=== PATIENT | female | born 1975 | race Caucasian/White ===

== ENCOUNTER 2021-02-04 06:51 | Day surgery (SDC) | payer BC ==
[~2021-02-04 06:51] MED LIST: Lactated Ringers 1,000 ML IV SCH; Lidocaine 1%/Sod Bicarbonate in NS 8.4% 1 ML Syringe IDERM PRN; Sodium Chloride 0.9% 10 ML Syringe FLUSH PRN
--- NOTE | 2021-02-04 07:17 | PCM.PREANE ---
Preanesthetic Assessment - Procedure Proposed Procedure: Endometrial Ablation hysteroscopy - Anesthesia/Transfusion/Family Hx Anesthesia History: No Prior Anesthesia Family History of Anesthesia Reaction: Yes (pseudocholenesterase defficency) Transfusion History: No Prior Transfusion(s) - Review of Systems General: No Symptoms Pulmonary: No Symptoms Cardiovascular: No Symptoms Gastrointestinal: No Symptoms Neurological: No Symptoms Other: Reports: None - Physical Assessment NPO Status Date: 02/03/21 NPO Status Time: 00:00 Height: 1.63 m Weight: 58 kg ASA Class: 1 Mental Status: Alert & Oriented x3 Airway Class: Mallampati = 1 Dentition: Reports: Normal Dentition, [place](s) Thyro-Mental Finger Breadths: 3 Mouth Opening Finger Breadths: 3 ROM/Head Extension: Full Lungs: Clear to Auscultation, Normal Respiratory Effort Cardiovascular: Regular Rate, Regular Rhythm - Lab Values: Laboratory Last Values Urine HCG, Qual Negative (NEGATIVE) 02/04/21 06:55 - Allergies Allergies/Adverse Reactions: Allergies Allergy/AdvReac Type Severity Reaction Status Date / Time No Known Allergies Allergy Verified 02/03/21 13:18 - Blood Blood Available: No Product(s) Available: None - Anesthesia Plan Pre-Op Medication Ordered: None - Acknowledgements Anesthesia Type Planned: General Anesthesia Pt an Appropriate Candidate for the Planned Anesthesia: Yes Alternatives and Risks of Anesthesia Discussed w Pt/Guardian: Yes Pt/Guardian Understands and Agrees with Anesthesia Plan: Yes PreAnesthesia Questionnaire - SUBSTANCE USE Tobacco Use Status *Q: Current Every Day Tobacco User Tobacco Use Within Last Twelve Months: No Second Hand Smoke Exposure: No Days Per Week of Alcohol Use: 0 Number of Drinks Per Day: 0 Total Drinks Per Week: 0 Recreational Drug Use History: No - CURRENT (IN HOUSE) MEDS Current Meds: Current Medications Lactated Ringer's (Ringers, Lactated) 1,000 mls @ 125 mls/hr IV ASDIRECTED ALEX Stop: 02/04/21 23:00 Lidocaine/Sodium Bicarbonate (Lidocaine 1%/Sod Bicarbonate In Ns 8.4% 1 Ml Syringe) 0.25 ml IDERM ONETIME PRN PRN Reason: Prior to IV Start Stop: 02/04/21 18:00 Sodium Chloride (Sodium Chloride 0.9% 10 Ml Syringe) 10 ml FLUSH ASDIRECTED PRN PRN Reason: Keep Vein Open Stop: 02/04/21 18:00
[2021-02-04] MEDS ORDERED: Ondansetron 4 MG/2 ML SDV ONE (07:25)
[2021-02-04] MEDS ORDERED: fentaNYL 250 MCG/5 ML SDV ONE (07:25)
[2021-02-04] MEDS ORDERED: Midazolam 1 MG/ML 2 ML SDV ONE (07:25)
[2021-02-04] MEDS ORDERED: Ketorolac 30 MG/ML SDV ONE (07:26)
[2021-02-04] MEDS ORDERED: Propofol 200 MG/20 ML SDV ONE ×2 (07:26→07:38)
[2021-02-04] MEDS ORDERED: Lidocaine 1% 4 ML ONE (07:26)
[2021-02-04] MEDS ORDERED: Rocuronium 50 MG/5 ML Vial ONE (07:34)
[2021-02-04] MEDS ORDERED: ceFAZolin 1 GM Vial ONE (07:35)
--- NOTE | 2021-02-04 08:51 | PCM.OPNOTE ---
- General Post-Op/Procedure Note Date of Surgery/Procedure: 02/04/21 Operative Procedure(s): Hysteroscopy, NovaSure endometrial ablation Findings: Uterus sounded to approximately 10 cm including the cervix. Uterine cavity approximately 7 cm. Width of the cavity was 4.6 cm. No abnormalities were noted within the endometrial cavity involving the endometrium. Bimanual exam otherwise was unremarkable. Patient was having some bleeding at the time of surgery consistent with menses. Pre Op Diagnosis: 1. Menorrhagia. 2. Dysmenorrhea Post-Op Diagnosis: Same Anesthesia Technique: General ET Tube Primary Surgeon: Sergio Orta Fluid Replacement, Intraop: 1,000 EBL in mLs: 5 Complications: None Condition: Good Free Text/Narrative:: Surgery duration: 12 minutes Procedure: The patient was appropriately consented. She was taken to the brain room and placed in a supine position on the operating table. She received 2 g of Ancef preoperatively for infection prophylaxis and had sequential compression stockings in place for DVT prophylaxis. Patient was given general endotracheal anesthesia. She is placed in a dorsal lithotomy position and prepped and draped in usual fashion. An exam under anesthesia was performed. Findings as described above. A weighted speculum was placed in the vagina. Cervix is visualized. It was grasped anteriorly with a single-tooth tenaculum. Uterus was then sounded to a depth of 10 cm. Cervix was 3 cm in length. Uterine cavity was 7 cm in length. It is from the anterior, mid position. The cervix was dilated to entrance of a 5 mm 12 rigid hysteroscope. This was placed without problem and normal saline was used as a distending medium. The perimetria cavity was visualized. Findings as described above. Endometrial ablation was then performed. The cervix was dilated to allow placement of the NovaSure endometrial apparatus. Uterus had sounded to 10 cm, cervix was 3 cm and endometrial cavity was a length of 7-1/2 cm. The NovaSure device was set to 6.5 centimeters as this was maximal setting. The image cavities foundry 4.6 cm in width. Uterine cavity integrity check was then performed and the endometrial cavity was then ablated. Energy was 164. The ablation took approximately 79 seconds. The array was collapsed and the apparatus was removed. Hysteroscope was then placed back into the endometrial cavity. Blood was flushed out and the findings were consistent with a cauterized endometrial cavity. At this point the scope was removed. The vagina was cleared of old blood, the cervix was released and the weighted speculum was removed. Patient was returned to supine position and awakened from general anesthesia. She tolerated the procedure well and operating room in good condition.
[2021-02-04] MEDS ORDERED: fentaNYL 100 MCG/2 ML SDV IVPUSH PRN (08:54)
--- NOTE | 2021-02-04 08:56 | PCM.POSTAN ---
POST ANESTHESIA ASSESSMENT - MENTAL STATUS Mental Status: Alert, Oriented - VITAL SIGNS Vital Signs: Last Vital Signs Temp 36.3 C 02/04/21 08:49 Pulse 63 02/04/21 08:49 Resp 13 02/04/21 08:49 BP 103/67 02/04/21 08:49 Pulse Ox 91 L 02/04/21 08:49 - RESPIRATORY Respiratory Status: Respiratory Rate WNL, Airway Patent, O2 Saturation Stable - CARDIOVASCULAR CV Status: Pulse Rate WNL, Blood Pressure Stable - GASTROINTESTINAL GI Status: No Symptoms - PAIN Pain Score: 0 - POST OP HYDRATION Hydration Status: Adequate & Stable - OBSERVATIONS Free Text/Narrative:: NO ANESTHESIA COMPLICATIONS NOTED
--- NOTE | 2021-02-04 09:56 | PCM48HPAN ---
Post Anesthesia Note - EVALUATION WITHIN 48HRS OF ANESTHETIC Vital Signs in Normal Range: Yes Patient Participated in Evaluation: Yes Respiratory Function Stable: Yes Airway Patent: Yes Cardiovascular Function Stable: Yes Hydration Status Stable: Yes Pain Control Satisfactory: Yes Nausea and Vomiting Control Satisfactory: Yes Mental Status Recovered: Yes Vital Signs: Last Vital Signs Temp 36.3 C 02/04/21 09:37 Pulse 55 L 02/04/21 09:37 Resp 12 02/04/21 09:37 BP 100/65 02/04/21 09:37 Pulse Ox 100 02/04/21 09:37 - COMMENTS/OBSERVATIONS Free Text/Narrative:: NO ANESTHESIA COMPLICATIONS NOTED
[2021-02-04] MEDS ORDERED: Ketorolac 30 MG/ML SDV IVPUSH SCH (13:30)
[2021-02-04] MEDS ORDERED: Ibuprofen 600 MG Tab PO PRN (19:30)
== END 2021-02-04 10:15 | disposition home or self-care (01) ==
LOC: JD.SDS 06:51
PROVIDERS: ATTEND Obstetrics & Gynecology
DX: N92.0 Excessive and frequent menstruation with regular cycle (principal); N94.6 Dysmenorrhea, unspecified; Z79.899 Other long term (current) drug therapy
CPT/HCPCS: 36415; 58563; 81003; 81025; 85025; J0690; J1885; J2250; J2405; J2704; J3010; J7120; 00952